=== PATIENT | female | born 2000 | race Caucasian/White ===

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

== ENCOUNTER 2021-01-08 16:31 | Outpatient (CLI) | payer BC, SELFPAY | END 2021-01-08 16:32 | disposition home or self-care (01) | LOC: ANHCOVIDVC 16:31 | PROVIDERS: PCP Internal Medicine | DX: Z23 Encounter for immunization (principal) | CPT/HCPCS: 0002A; 91300 ==

== ENCOUNTER → 2021-04-24 03:46 | Outpatient (CLI) | payer BC, SELFPAY ==
[2021-04-24 12:36] LABS: Influenza Control Positive
[2021-04-24 20:11] LABS: SARS-CoV-2 RNA PCR Negative
== END ==
PROVIDERS: PCP Internal Medicine; Visit Provider Internal Medicine
DX: R68.89 Other general symptoms and signs (principal); Z20.822 Contact with and (suspected) exposure to COVID-19
CPT/HCPCS: 36415; 87804; C9803; U0003; U0005

== ENCOUNTER 2022-03-12 01:54 | Day surgery (SDC) | payer BC, SELFPAY ==
[2022-03-09 13:08] VITALS: BMI 20.3
--- NOTE | 2022-03-09 13:15 | PC.NURSE ---
Report to the Outpatient Waiting Room, entrance under the green pavilion located off [facility], at time 0900 on date 03/12/22. OR Time: 1100. - You and your visitor will be asked a series of questions to screen for COVID 19 for your protection. - Only one visitor is allowed at this time. - The patient visitor is requested to leave or wait in car when not with patient. - A mask is required within the hospital. Patients may have clear liquids (water, carbonated beverages, clear teas, apple juice) until 3 hours prior to surgery with a maximum of 20 ounces. - No food from midnight until time of surgery Take the following medications with a SIP of water the morning of surgery: WELLBUTRIN, FETZIMA Medications to discontinue per physician: VITAMINS/SUPPLEMENTS Date to take last dose: 03/08/22 Please no make-up, nail sinhala, hairspray, perfume, deodorant, or body powder the day of surgery. No jewelry (including any body piercings) or valuables the day of surgery, leave them at home. Please take a shower or bath the night before, or the morning of, surgery with an antibacterial soap. Wear comfortable, loose fitting clothing. - Jewelry must be removed prior to entering the operating room. Rings and piercings that are not removed may be cut off. - The hospital will not accept responsibility for valuables. - Please leave all valuables, including medications, at home the day of surgery. If you are going home after surgery, a licensed tractor trailer truck driver must drive you home. - NO public transportation without another adult. - We recommend that an adult stay with you for 24 hours following discharge. - We also recommend that you do not drive, make important decision, drink alcoholic beverages, or take any drugs that were not prescribed by your health care provider for at least 24 hours after your discharge time. Follow any additional instructions given to you from your surgeon. If you or anyone in your household have experienced Covid symptoms in the past week, please notify your surgeon or the nurse liaison at the phone number below for possible testing. Telephone instructions given to PT - DUY LOVE and asked if any additional questions and then verbalized understanding. Patient advised to call surgeon office or pre surgery nurse liaison [phone] if any additional questions.
--- NOTE | 2022-03-11 10:51 | WPDANESEPPF ---
Anes - Initial Pre Proc Eval Procedure: Operation Date: 03/12/22 08:00 Proposed Procedures p Tonsillectomy - Jace Ho MD Date/Time: 03/11/22 10:51 Surgeon: Jace Ho MD Pre Op Diagnosis: Hypertrophic Tonsils Patient Data Age: 21 Gender: F Height: 1.7 m Weight: 58.97 kg Allergies Allergy/AdvReac Type Severity Reaction Status Date / Time No Known Allergies Allergy Unknown Verified 03/12/22 07:23 Home Medications Medication Instructions Recorded Confirmed Type bupropion HCl 150 mg 24 hr tablet, 150 mg PO QAM 09/07/19 03/12/22 History extended release levomilnacipran 80 mg capsule,24 80 mg PO DAILY 09/07/19 03/12/22 History hr,extended release (Fetzima) coenzyme Q10 10 mg capsule 10 mg PO ONCE #90 caps 10/04/19 03/12/22 Rx vitamin B complex 1 tablet PO DAILY 10/04/19 03/12/22 History omega-3 fatty acids 1,000 mg 2,000 mg PO BID 04/08/20 03/12/22 History capsule (Fish Oil Concentrate) clindamycin phosphate 1 % topical 1 applic topical BID #60 mL 01/26/21 03/12/22 Rx solution (Cleocin T) erenumab-aooe 70 mg/mL See Rx Instructions .Route 12/28/21 03/12/22 Rx subcutaneous auto-injector .COMPLEX #1 mL (Aimovig Autoinjector) spironolactone 50 mg tablet 50 mg PO BID ACNE 01/01/22 03/12/22 History cholecalciferol (vitamin D3) 1,250 See Rx Instructions .Route 01/04/22 03/12/22 Rx mcg (50,000 unit) capsule .COMPLEX #10 caps rimegepant 75 mg disintegrating 75 mg PO ONCE PRN migraine 01/20/22 03/12/22 Rx tablet (Nurtec ODT) headache #8 tabs oxycodone 5 mg tablet 5 mg PO Q8-12H PRN pain #21 tabs 03/12/22 Rx Patient hx anesthesia problems: none Family hx anesthesia problems: none Results Review: All pre-operative results and documents have been reviewed as part of the pre-operative evaluation. [facility] Past Medical History Medical History Acne Adult BMI <19 kg/sq m Anxiety with depression Body mass index (BMI) 19 to less than 21 Dyslipidemia Elevated LFTs Encounter for preventive health examination Encounter for routine adult health examination without abnormal findings Follow up Heart murmur Migraines [place] exposure On marine oil terminal superintendent drug therapy Strep throat Tricuspid regurgitation Vitamin D deficiency Family History Family History Mother Family history of thyroid disease Hypertension Grandparent Family history of thyroid disease Diabetes mellitus Family history of arthritis Father Hypertension Family history of cardiovascular disease Asthma Depression Grandparent Cancer Diabetes mellitus Depression Cerebrovascular accident Thyroid disorder Social History Social History Smoking status: Never smoker Tobacco type: e-cigarettes/vaping Additional smoking assessment comments: VAPING X1 YEAR, THEN QUIT Alcohol intake: current Drinks per week: 2 Substance use: current Substance use type: marijuana Living arrangements: with family Spiritual care concerns: No Anes - Eval Final PreProcedure Day of Procedure 03/11/22 10:51 Patient weight: normal Heart: regular rate and rhythm Lungs: clear to auscultation and normal air movement Airway: Mallampati scale class II Neurological: alert and oriented Last oral intake: >/= 8 hours ASA classification: II Emergent: no Anesthetic plan: proceed Anesthesia type and monitoring: general ETT Results Review: All pre-operative results and documents have been reviewed as part of the pre-operative evaluation. Informed Consent: The patient's anesthetic plan and its attendant risks and benefits were discussed with the patient/family/POA. Questions were solicited and answers provided to the satisfaction of the patient/family/POA.
--- NOTE | 2022-03-11 16:40 | PM.IMHP ---
H&P: HPI History of Present Illness Date/Time: 03/11/22 16:40 Chief Complaint: Recurrent tonsillitis chronic tonsillitis Narrative: Planned surgical procedure no change in any Review of Systems Review of Systems: All systems reviewed & are unremarkable except as noted in HPI and below PMFSH Past Medical History Medical History Acne Adult BMI <19 kg/sq m Anxiety with depression Body mass index (BMI) 19 to less than 21 Dyslipidemia Elevated LFTs Encounter for preventive health examination Encounter for routine adult health examination without abnormal findings Follow up Heart murmur Migraines [place] exposure On intermodal truck driver drug therapy Strep throat Tricuspid regurgitation Vitamin D deficiency Family History Family History Mother Family history of thyroid disease Hypertension Grandparent Family history of thyroid disease Diabetes mellitus Family history of arthritis Father Hypertension Family history of cardiovascular disease Asthma Depression Grandparent Cancer Diabetes mellitus Depression Cerebrovascular accident Thyroid disorder Social History Social History Smoking status: Never smoker Tobacco type: e-cigarettes/vaping Additional smoking assessment comments: VAPING X1 YEAR, THEN QUIT Alcohol intake: current Drinks per week: 2 Substance use: current Substance use type: marijuana Living arrangements: with family Spiritual care concerns: No Meds Home Medications and Allergies Home Medications Medication Instructions Recorded Confirmed Type bupropion HCl 150 mg 24 hr tablet, 150 mg PO QAM 09/07/19 03/09/22 History extended release levomilnacipran 80 mg capsule,24 80 mg PO DAILY 09/07/19 03/09/22 History hr,extended release (Fetzima) coenzyme Q10 10 mg capsule 10 mg PO ONCE #90 caps 10/04/19 03/09/22 Rx vitamin B complex 1 tablet PO DAILY 10/04/19 03/09/22 History omega-3 fatty acids 1,000 mg 2,000 mg PO BID 04/08/20 03/09/22 History capsule (Fish Oil Concentrate) clindamycin phosphate 1 % topical 1 applic topical BID #60 mL 01/26/21 03/09/22 Rx solution (Cleocin T) erenumab-aooe 70 mg/mL See Rx Instructions .Route 12/28/21 03/09/22 Rx subcutaneous auto-injector .COMPLEX #1 mL (Aimovig Autoinjector) spironolactone 50 mg tablet 50 mg PO BID ACNE 01/01/22 03/09/22 History cholecalciferol (vitamin D3) 1,250 See Rx Instructions .Route 01/04/22 03/09/22 Rx mcg (50,000 unit) capsule .COMPLEX #10 caps rimegepant 75 mg disintegrating 75 mg PO ONCE PRN migraine 01/20/22 03/09/22 Rx tablet (Nurtec ODT) headache #8 tabs Allergies Allergy/AdvReac Type Severity Reaction Status Date / Time No Known Allergies Allergy Unknown Verified 03/09/22 13:05 Exam Narrative: Normal ENT exam tonsils 2 to 3+ cryptic stones Assessment and Plan Assessment and plan (1) Recurrent tonsillitis: Code(s): J03.91 - Acute recurrent tonsillitis, unspecified Status: Acute Assessment and Plan: ?plan is for the operating room for tonsillectomy risks discussed including bleeding infection damage to surrounding structures need further procedures tongue pain tooth pain loose dentition throat pain ear pain trismus tongue numbness tooth numbness postoperative bleeding 3-5%.? Need for time off work need for time off school the need for the use of narcotics patient voiced understanding and agreed (2) Chronic tonsillitis: Code(s): J35.01 - Chronic tonsillitis Status: Acute
[2022-03-12] VITALS (8 sets, daily range): BP systolic 96–126; BP diastolic 60–87; PULSE 83–121; RESP 9–18; TEMP 36.2–36.7; O2SAT 100
--- NOTE | 2022-03-12 07:15 | WPDHPUPDATE1 ---
History and Physical Update Update Date/Time: 03/12/22 07:15 History and Physical has been reviewed, including an updated exam of the patient. There are NO changes in the patient's condition. Risks, benefits, and alternatives have been discussed and questions answered. Patient agrees to proceed with procedure.
--- NOTE | 2022-03-12 07:45 | WPDANESEPPF ---
Anes - Initial Pre Proc Eval Procedure: Operation Date: 03/12/22 08:00 Proposed Procedures p Tonsillectomy - Jace Ho MD Date/Time: 03/12/22 07:45 Surgeon: Jace Ho MD Pre Op Diagnosis: Hypertrophic Tonsils Patient Data Age: 21 Gender: F Height: 1.7 m Weight: 58 kg Allergies Allergy/AdvReac Type Severity Reaction Status Date / Time No Known Allergies Allergy Unknown Verified 03/12/22 07:23 Home Medications Medication Instructions Recorded Confirmed Type bupropion HCl 150 mg 24 hr tablet, 150 mg PO QAM 09/07/19 03/12/22 History extended release levomilnacipran 80 mg capsule,24 80 mg PO DAILY 09/07/19 03/12/22 History hr,extended release (Fetzima) coenzyme Q10 10 mg capsule 10 mg PO ONCE #90 caps 10/04/19 03/12/22 Rx vitamin B complex 1 tablet PO DAILY 10/04/19 03/12/22 History omega-3 fatty acids 1,000 mg 2,000 mg PO BID 04/08/20 03/12/22 History capsule (Fish Oil Concentrate) clindamycin phosphate 1 % topical 1 applic topical BID #60 mL 01/26/21 03/12/22 Rx solution (Cleocin T) erenumab-aooe 70 mg/mL See Rx Instructions .Route 12/28/21 03/12/22 Rx subcutaneous auto-injector .COMPLEX #1 mL (Aimovig Autoinjector) spironolactone 50 mg tablet 50 mg PO BID ACNE 01/01/22 03/12/22 History cholecalciferol (vitamin D3) 1,250 See Rx Instructions .Route 01/04/22 03/12/22 Rx mcg (50,000 unit) capsule .COMPLEX #10 caps rimegepant 75 mg disintegrating 75 mg PO ONCE PRN migraine 01/20/22 03/12/22 Rx tablet (Nurtec ODT) headache #8 tabs Patient hx anesthesia problems: none Family hx anesthesia problems: none Results Review: All pre-operative results and documents have been reviewed as part of the pre-operative evaluation. [facility] Past Medical History Medical History Acne Adult BMI <19 kg/sq m Anxiety with depression Body mass index (BMI) 19 to less than 21 Dyslipidemia Elevated LFTs Encounter for preventive health examination Encounter for routine adult health examination without abnormal findings Follow up Heart murmur Migraines [place] exposure On retirement drug therapy Strep throat Tricuspid regurgitation Vitamin D deficiency Family History Family History Mother Family history of thyroid disease Hypertension Grandparent Family history of thyroid disease Diabetes mellitus Family history of arthritis Father Hypertension Family history of cardiovascular disease Asthma Depression Grandparent Cancer Diabetes mellitus Depression Cerebrovascular accident Thyroid disorder Social History Social History Smoking status: Never smoker Tobacco type: e-cigarettes/vaping Additional smoking assessment comments: VAPING X1 YEAR, THEN QUIT Alcohol intake: current Drinks per week: 2 Substance use: current Substance use type: marijuana Living arrangements: with family Spiritual care concerns: No Anes - Eval Final PreProcedure Day of Procedure 03/12/22 07:45 Patient weight: normal Heart: regular rate and rhythm Lungs: clear to auscultation Airway: Mallampati scale class II Neurological: alert and oriented Last oral intake: >/= 8 hours ASA classification: II Emergent: no Anesthetic plan: proceed Anesthesia type and monitoring: general ETT and standard monitoring Results Review: All pre-operative results and documents have been reviewed as part of the pre-operative evaluation. Informed Consent: The patient's anesthetic plan and its attendant risks and benefits were discussed with the patient/family/POA. Questions were solicited and answers provided to the satisfaction of the patient/family/POA.
[2022-03-12] MEDS: LACTATED RINGERS 1,000 ML 30 ML IV CONT ×2 (07:48→09:23)
[2022-03-12] MEDS: ACETAMINOPHEN 500 MG TABLET 1000 MG PO (07:49)
--- NOTE | 2022-03-12 09:07 | P.OP_ITS ---
Procedure Note - Detailed Date of Procedure 03/12/22 Pre-op Diagnosis Hypertrophic Tonsils, chronic tonsillitis, recurrent tonsillitis Post-op Diagnosis Same Procedure Performed Tonsillectomy Surgeon Jace Ho MD Anesthesia General Indications See above Findings Cryptic endophytic scarred down stones pockets of purulence Description of Procedure Patient identified consent verified in preop. Patient brought operating room. Time-out performed. General anesthesia induced endotracheal tube secured narrowing left and midline. Patient prepped and draped bed moved. Second time- out performed. McIvor mouth gag inserted revealing tonsils which were about 2+ endophytic scarred down with stones. They were dissected bilaterally and the extracapsular plane using Bovie electrocautery at a setting of 10. Any bleeding was cauterized with suction Bovie electrocautery at a setting of 12 in 15. The McIvor mouth gag was then lowered for 30 seconds and reopened to reveal no further bleeding. This marked the end of the procedure. I performed all dictated portions. Care the patient was turned over to Anesthesiology. There were no immediate complications the patient was taken to PACU. Estimated Blood Loss 5 Drains No Packing No Pathology Yes Complications No immediate complications Condition Stable Disposition PACU
== END 2022-03-12 10:50 | disposition home or self-care (01) ==
PROVIDERS: PCP Internal Medicine; Visit Provider Otolaryngology
PROC: (CPT 42826; principal; 2022-03-12 08:00)
DX: J03.91 Acute recurrent tonsillitis, unspecified (principal); J35.01 Chronic tonsillitis; E78.5 Hyperlipidemia, unspecified; E55.9 Vitamin D deficiency, unspecified; F41.8 Other specified anxiety disorders
CPT/HCPCS: 42826; 88304; A9270; J0330; J1100; J1170; J2250; J2405; J2704; J3010; J7120

== ENCOUNTER 2023-02-02 12:12 | Outpatient (CLI) | payer BC, SELFPAY ==
[2023-02-02 12:30] LABS: Basophils Percent Auto 0.6 % (0.2-1.2); Eosinophils Absolute Auto 0.1 K/mm3 (0-0.3); Eosinophils Percent Auto 1.8 % (0-4.4); Hemoglobin 15.4 g/dL (12.0-15.0); Immature Granulocyte Absolute 0.03 K/mm3 (0.00-0.031); Immature Granulocyte Percent A 0.5 % (0-0.5); Lymphocytes Absolute Auto 1.93 K/mm3 (0.9-3.2); Lymphocytes Percent Auto 31.2 % (18.3-44.2); Mean Corpuscular HGB Conc 33.5 g/dl (32-36); Mean Corpuscular Hemoglobin 31.7 pg (26-34); Mean Corpuscular Volume 94.7 fl (80-100); Mean Platelet Volume 10.5 fl (7.4-10.4); Monocytes Absolute Auto 0.7 K/mm3 (0.1-0.6); Monocytes Percent Auto 11.8 % (2.6-8.5); Neutrophils Absolute Auto 3.3 K/mm3 (1.3-6.7); Neutrophils Percent Auto 54.1 % (45.5-73.1); Platelet Count Result 259 k/mm3 (150-375); Red Blood Count 4.86 M/mm3 (4.2-5.4); White Blood Count 6.2 K/mm3 (4.5-10.0)
[2023-02-02 12:52] LABS: Strep Group A RT-PCR NOT DETECTED (Negative)
[2023-02-02 15:46] LABS: Monoscreen Negative (Negative); Negative Monotest Control Negative (Negative); Positive Monotest Control Positive (Positive)
== END 2023-02-02 12:13 | disposition home or self-care (01) ==
LOC: ANHLAB 12:14
PROVIDERS: PCP Internal Medicine; Visit Provider Internal Medicine
DX: J02.9 Acute pharyngitis, unspecified (principal)
CPT/HCPCS: 36415; 85025; 86308; 87651

== ENCOUNTER 2025-04-23 12:27 | Outpatient (CLI) | payer BC, SELFPAY ==
--- OUTSIDE RECORDS SUMMARY | 2025-04-23 12:29 | XMS_ITS | Clinical Summary ---
Author Organization [facility] Address [address] [place] [id number] Phone Care Team Providers Care Flavor Maker Name Role Phone Asa Beltran MD Primary Care Provider + Allergies No known active allergies Medications topiramate (TOPAMAX) 25 mg tablet Take 25 mg by mouth 2 times daily. Active drospirenone-eth inyl estradiol (BRITT 28) 3-0.03 mg tablet Take 1 Tablet by mouth daily. Active DULoxetine (CYMBALTA) 60 mg Capsule, Delayed Release(E.C.) Take 60 mg by mouth daily. Active Family History Medical History Relation Name Comments Anxiety Father Relation Name Status Comments Father Alive Mother Alive Social History Tobacco Use Types Packs/Day Years Used Date Smoking Tobacco: Never Smokeless Tobacco: Never Alcohol Use Standard Drinks/Week Comments Not Currently 0 (1 standard drink = 0.6 oz pur e alcohol) Comments No Sex and Gender Information Value Date Recorded Sex Assigned at Not on file Legal Sex Female 2:15 PM CDT Gender Identity Not on file Sexual Orientation Not on file Last Filed Vital Signs Vital Sign Reading Time Taken Comments Blood Pressure 121/76 12/14/2018 2:29 PM CDT Pulse - - Temperature 36.7 C (98 F) 12/14/2018 2:29 PM CDT Respiratory Rate 18 12/14/2018 2:29 PM CDT Oxygen Saturation 100% 12/14/2018 2:29 PM CDT Inhaled Oxygen Concentration - - Weight 59.9 kg (132 lb) 12/14/2018 2:29 PM CDT Height 167.6 cm (5' 6) 12/14/2018 2:29 PM CDT Body Mass Index 21.31 12/14/2018 2:29 PM CDT Plan of Treatment Health Maintenance Due Date Last Done Comments CHLAMYDIA SCREENING (ANNUAL) 11-24 YEARS 2012 HPV VACCINES (1 - 3-dose series) 2016 DTAP/TDAP/TD VACCINES (1 - Tdap) 2020 HEPATITIS B VACCINES (1 of 3 - 19+ 3-dose series) 06/06 CERVICAL CANCER SCREENING 2022 HPV/Cotest (21-29) 2022 PAP SMEAR 2022 INFLUENZA VACCINE (#1) 2025 Insurance [employer] Care Teams Flavor Maker Relationship Specialty Start Date End Date Asa Beltran MD [address] [place] [id number] PCP - General Internal Medicine 12/14/18
--- OUTSIDE RECORDS SUMMARY | 2025-04-23 12:30 | XMS_ITS | Clinical Summary ---
Author Organization [facility] Address [address] [place] [address] Care Team Providers Care Cement Mixer Driver Name Role Phone Asa Beltran MD Primary Care Provider [phone] Source Comments [facility],non-owned Affiliates and Associated Physician Practices is amultiple site organization consisting of ambulatory clinics and hospital sitesin [place], [place], [place] and [place]. This disclosure is being madepursuant to the Care Everywhere program and may not contain all information available regarding this patient. 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 Gender Identity Not on file Sexual Orientation Not on file Plan of Treatment Health Maintenance Due Date Last Done Comments HIV SCREENING 2016 HPV VACCINE (1 - 3-dose series) 2016 CHLAMYDIA/GONORRHEA SCREENING 2017 MENINGOCOCCAL (Group B) VACC INE SHARED DECISION-MAKING (1 of 2 - Standard) 2017 HEPATITIS C SCREENING 06/26/2019 DTAP/TDAP/TD VACCINES (1 - Tdap) 2020 HEPATITIS B VACCINE (1 of 3 - 19+ 3-dose series) 2020 COVID-19 VACCINE (1 - 2023-2 5 season) 2024 DEPRESSION SCREENING 09/05/2024 INFLUENZA VACCINE (#1) 2025 ZOSTER VACCINE (1 of 2) 2051 HIB VACCINE Aged Out No longer eligi ble based on patient's age to complete this topic MENINGOCOCCAL GROUPS A/C/Y/W VACCINE Aged Out No longer eligible b ased on patient's age to complete this topic PNEUMOCOCCAL VACCINE Aged Out No long er eligible based on patient's age to complete this topic Insurance ANTHEM ANTHEM ANTHEM Care Teams Cement Mixer Driver Relationship Specialty Start Date End Date Asa Beltran MD [address] [place] [address] PCP - General Internal Medicine 09/17/19
--- OUTSIDE RECORDS SUMMARY | 2025-04-23 12:30 | XMS_ITS | Clinical Summary ---
Author Organization [facility] [address] Address [address] [place] [phone] Care Team Providers Care Box Icer Name Role Phone Asa Beltran MD Primary Care Provider [phone] Allergies No known active allergies Medications buPROPion (WELLBUTRIN) 75 mg tablet Take 80 mg by mouth 2 (two) times a day Active levomilnacipran ER (FETZIMA) 40 mg capsule,extended release 24 hrIndications:ma reyna depressive disorder 60 mg daily Active Aimovig Autoinjector 70 mg/mL auto-injector subcutaneous injection INJECT 70 MG UNDER THE SKIN MONTHLY 4 Active spironolactone (ALDACTONE) 100 mg tablet TAKE 1 TABLET BY MOUTH DAILY WITH FULL GLASS OF WATER 4 Active tretinoin (RETIN-A) 0.05 % cream APPLY A PEA - SIZED AMOUNT TO THE ENTIRE FACE NIGHTLY 4 Active levonorgestreL (LILETTA) 20.4 mcg/24 hr (8 yrs) 52 mg IUD 1 each by intrauterine route once 0 Active clindamycin (CLEOCIN T) 1 % lotion APPLY THIN LAYER ONCE DAILY IN THE MORNING. LAYER WITH MOISTURIZER NEEDED 5 Active metroNIDAZOLE (METROGEL) 0.75 % (37.5mg/5 gram) vaginal gelIndications:B acterial Vaginosis Apply vaginally every night for 5 nights. 70 g 5 Active Additional Information Patient not taking.Reported on 02/14/2025 rizatriptan (MAXALT) 10 mg tablet Active Active Problems No known active problems Encounters Date Type Department Care Team Description 02/20/2025 [facility] [place] [phone] Vicky Reed B.A. Vaginitis panel Vaginal 02/19/2025 [facility]phone [facility] [address] [place] [phone] Aletha Laws NP Test Results (Lab results) 02/14/2025 7:46 PM CDT - 02/14/2025 11:59 PM CDT Hospital Encounter [address] [phone] Vaginal discharge; Vaginal itching; Vaginal irritation Discharge Disposition: Discharge to home or self care 02/14/2025 1:30 PM CDT [facility] [address] [place] [phone] Aletha Laws NP Vaginal discharge (Primary Dx); Vaginal itching; Vaginal irritation 02/11/2025 [facility] [address] [place] [phone] Aletha Laws NP Rx needed from Last 3 Months Surgical History Surgery Date Site/Laterality Comments TONSILLECTOMY WISDOM TOOTH EXTRACTION 01/04/2024 - 02/03/2024 Bilateral Medical History Medical History Date Comments Anxiety Family History Medical History Relation Name Comments Breast cancer Neg Hx Colon cancer Neg Hx Ovarian cancer Neg Hx Uterine cancer Neg Hx Social History Tobacco Use Types Packs/Day Years Used Date Smoking Tobacco: Never Smokeless Tobacco: Never Tobacco Cessation:Counseling Given: No Comments No Sex and Gender Information Value Date Recorded Sex Assigned at Not on file 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 Gender Identity Not on file Sexual Orientation Not on file Obstetrics History Para Term AB IAB SAB Ectopic Multiple Livin g Live Births 0 0 0 0 0 0 0 0 0 0 0 Last Filed Vital Signs Vital Sign Reading Time Taken Comments Blood Pressure 114/80 02/14/2025 1:40 PM CDT Pulse 90 06/26/2022 11:47 AM CDT Temperature 36.5 C (97.7 F) 06/26/2022 11:47 AM CDT Respiratory Rate 16 06/26/2022 11:47 AM CDT Oxygen Saturation 100% 06/26/2022 11:47 AM CDT Inhaled Oxygen Concentration - - Weight 63 kg (139 lb) 02/14/2025 1:40 PM CDT Height 170.2 cm (5' 7) 08/16/2024 1:38 PM VIDEO GAMES STORYWRITER Body Mass Index 21.77 08/16/2024 1:38 PM VIDEO GAMES STORYWRITER Plan of Treatment Health Maintenance Due Date Last Done Comments Depression Screening 2001 Hepatitis C Screening 2001 HPV Vaccines (1 - 3-dose series) 2016 Meningococcal B Vaccine (1 o f 2 - Standard) 2017 DTaP/Tdap/Td Vaccine (7 - Td or Tdap) 04/03/2023 04/03/2013, 07/15/2006, 12/31/2002, Additional history exists Covid-19 Vaccine (3 - 2023-2 5 season) 2024 01/08/2021, 12/18/2020 Influenza Vaccine (#1) 2025 4, 07/15/2006, 2005, Additional history exists Cervical Cancer Screening 08/16/2025 08/16/2024 Regular Well Visit/Exam 18-64 08/16/2025 08/16/2024 Chlamydia and Gonorrhea (GC/ CT) Screening 12/26/2025 12/26/2024, 06/26/2022 Hepatitis B Screening Completed 07/10/2002 , 2001, 2001 Pneumococcal vaccine <65 Completed 002, 01/31/2002, 2001, Additional history exists Varicella Vaccines Completed 04/03/2013, 07/10/2002 Procedures Procedure Name Priority Date/Time Associated Diagnosis Comments VAGINITIS PANEL Routine 02/14/2025 8:18 PM CDT Vaginal discharge Vaginal itching Vaginal irritation N. GONORRHOEAE/C. TRACHOMATIS AMPLIFICATION Routine 12/26/2024 9:01 PM CDT Screen for sexually transmitted diseases IGP,CTNG,RFX APT HPV ALL PTH Routine 08/16/2024 3:28 PM VIDEO GAMES STORYWRITER Cervical cancer screening Screen for sexually transmitted diseases from Last 3 Months or Most Recently Relevant to Health Maintenance Results * Vaginitis panel Vaginal (02/14/2025 8:18 PM CDT) Bacterial Vaginosis Not Detected Not Detected Comment:A negative result do es not preclude a possible infection. Results should be considered in conjunction with clinical presentation to determine the disease status. Aleah group Not Detected Not Detected [facility] Aleah glabrata/ krusei Not Detected Not Detected [facility] Trichomonas DNA Not Detected Not Detected [facility] Vaginal 02/14/2025 8:18 PM CDT 02/14/2025 8:45 PM CDT Narrative [facility] - 02/14/2025 9:50 PM CDT The CepNeokineticsid Xpert Xpress MVP test detects DNA targets from anaerobic bacteria associated with bacterial vaginosis, Aleah species associated with vulvovaginal candidiasis, and Trichomonas vaginalis by nucleic acid amplification testing (NAAT). Results should be interpreted in conjunction with other clinical data. This test cannot be used to assess therapeutic success or failure because target nucleic acids may persist following antimicrobial therapy. This test has been cleared by the [place] Food and Drug Administration to aid in the diagnosis of vaginal infections in symptomatic women ages 14 and older. The performance characteristics of this test have been verified by the [facility]. Aletha Laws NP LAB MICROBIOLOGY - GENERAL ORDERABLES Final Result [facility] [address] Department [place] [address] * N. gonorrhoeae/C. trachomatis Amplification Vaginal (12/26/2024 9:01 PM CDT) Pathologist [facility] C. trachomatis Not Detected N. gonorrhoeae Not Detected [facility] Comment: Interpretive Data This assay detects Chlamydia trachomatis and Neisseria gonorrhoeae by nucleic acid amplification testing (NAAT). This assay has been cleared by the [place] Food and Drug administration. The performance characteristics of this test have been verified by the [facility] laboratory. The performance characteristics of this test have not been evaluated in individuals less than 14 years of age. Current Interpretive Data was last revised on 2023. Vaginal (None) 12/26/2024 9: 01 PM CDT 12/26/2024 9:01 PM CDT us Aletha Laws NP LAB MICROBIOLOGY - GENERAL ORDERABLES Final Result [facility] [address] Department [place] [address] * IGP,CtNg,rfx Apt HPV all pth (08/16/2024 3:28 PM VIDEO GAMES STORYWRITER) Clinical indication Comment [facility] - 01 Comment:NEGATIVE FOR INTRAEP ITHELIAL LESION OR MALIGNANCY. Specimen adequacy: Comment [facility] - 01 Comment: Satisfactory for evaluation. Endocervical and/or squamous metaplastic cells (endocervical component) are present. Clinician provided ICD10 Comment [facility] - 01 Comment: Z12.4 Z11.3 Performed by Comment [facility] - 01 Comment:Vinicius Laguna, Cytot echnologist (ASCP) . . [facility] - 01 Note: Comment [facility] - 01 Comment: The Pap smear is a screening test designed to aid in the detection of premalignant and malignant conditions of the uterine cervix. It is not a diagnostic procedure and should not be used as the sole means of detecting cervical cancer. Both false-positive and false-negative reports do occur. Test methodology Comment [facility] - 01 Comment: This liquid based ThinPrep(R) pap test was screened with the use of an image guided system. . Comment [facility] - 01 Comment: The HPV DNA reflex criteria were not met with this specimen result therefore, no HPV testing was performed. Chlamydia, Nuc. Acid Amp Negative Negative [facility] 02 Gonococcus, Nuc. Acid Amp Negative Negative [facility] 02 Thin Prep-Cervical/ Endocervical 08/16/2024 3:28 PM VIDEO GAMES STORYWRITER 08/16/2024 Narrative [facility] - 08/23/2024 3:07 AM VIDEO GAMES STORYWRITER Performed at: 01 - [address] [id number] Charge Entry Clerk: Dia Robert MD, Phone: [phone] Performed at: - [address] [id number] Charge Entry Clerk: Dia Robert MD, Phone: [phone] Specimen Comment: Source.............Cervix;Endocervix Specimen Comment: No. of containers..01 ThinPrep Vial Ovidio Lomeli MENDING CARRIER LAB PATHOLOGY ORDERABLES Final Result [facility] 02 from Last 3 Months or Most Recently Relevant to Health Maintenance Insurance [employer] CHOICE [facility] ACCESS CHOICE ANTHEM ACCESS CHOICE Care Teams Box Icer Relationship Specialty Start Date End Date Asa Beltran MD [address] [place] [address] PCP - General Internal Medicine 06/19/22
--- OUTSIDE RECORDS SUMMARY | 2025-04-23 12:30 | XMS_ITS | Encounter Summary ---
Author Organization [facility] Address [address] [facility] [address] [place] [address] Care Team Providers Care Biomedical Equipment Tech Name Role Phone Asa Beltran MD Primary Care Provider [phone] Encounter Details Date Type Department Care Team (Late st Contact Info) Description 02/20/2025 Results [facility] [address] [facility] [facility] [address] [place] [address] Vicky Reed B.A. 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
[2025-04-25 07:09] LABS: Calprotectin, Fecal 10 ug/g (0-120); Pancreatic Elastase, Fecal >800 (>200)
== END 2025-04-23 12:28 | disposition home or self-care (01) ==
LOC: ANHLAB 12:27
PROVIDERS: PCP Internal Medicine; Visit Provider Nurse Practitioner Family
DX: R19.8 Other specified symptoms and signs involving the digestive system and abdomen (principal)
CPT/HCPCS: 82653; 83993